=== PATIENT | female | born 1935 | race Caucasian/White ===

== ENCOUNTER → 2016-10-17 | Outpatient (CLI) | payer MEDICARE, OTHER ==
[2016-10-17 17:26] LABS: HEMOGLOBIN 7.9 gm/dl (12.3-15.3)
== END ==
LOC: LAB 16:58
PROVIDERS: Physician Assistant Surgical
DX: K62.5 Hemorrhage of anus and rectum (principal); I48.91 Unspecified atrial fibrillation; I10 Essential (primary) hypertension
CPT/HCPCS: 36415; 85014; 85018; 93005

== ENCOUNTER → 2020-05-05 | Outpatient (CLI) | payer MEDICARE, OTHER ==
[~2020-05-05] MED LIST: ANTIVERT 25MG T25 MG PO; ARICEPT5 MG PO; BREO ELLIPTA 21 EACH INH; CRESTOR 10 MG T10 MG PO; KLOR-CON 1010 MEQ PO; LASIX 40 MG TAB40 MG PO; PREVACID30 MG PO; SINGULAIR10 MG PO; TOPROL XL100 MG PO; XARELTO20 MG PO; ZESTRIL2.5 MG PO; ZOFRAN ODT 4 MG4 MG PO
== END ==
LOC: MAMO 11:08
DX: Z12.31 Encounter for screening mammogram for malignant neoplasm of breast (principal)
CPT/HCPCS: 77063; 77067

== ENCOUNTER → 2020-06-26 | Outpatient (CLI) | payer MEDICARE, OTHER ==
[~2020-06-26] VITALS: Ht 147.3 cm; Wt 70.3 kg
== END ==
LOC: OPSV 06-18 09:00
DX: M81.0 Age-related osteoporosis without current pathological fracture (principal)
CPT/HCPCS: 96372

== ENCOUNTER 2020-12-14 16:45 | Emergency (ER) | payer MEDICARE, OTHER ==
[~2020-12-14] VITALS: Ht 152.4 cm; Wt 74.8 kg
== END 2020-12-14 19:20 | disposition home or self-care (01) ==
LOC: ER1 16:45
DX: Z20.822 Contact with and (suspected) exposure to COVID-19 (principal); E78.5 Hyperlipidemia, unspecified; I10 Essential (primary) hypertension; Z95.1 Presence of aortocoronary bypass graft
CPT/HCPCS: 99283; M0243

== ENCOUNTER → 2020-12-25 | Outpatient (CLI) | payer MEDICARE, OTHER ==
[~2020-12-25] VITALS: Ht 147.3 cm; Wt 70.8 kg
== END ==
LOC: OPSV 13:44
DX: M81.0 Age-related osteoporosis without current pathological fracture (principal)
CPT/HCPCS: 96372

== ENCOUNTER → 2021-07-02 | Outpatient (CLI) | payer MEDICARE, OTHER | LOC: OPSV 09:00 | DX: M81.0 Age-related osteoporosis without current pathological fracture (principal) | CPT/HCPCS: 96372 ==